=== PATIENT | female | born 2000 | race Caucasian/White ===

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

== ENCOUNTER → 2023-09-21 | Outpatient (CLI) | payer BC ==
[2023-09-21 15:27] LABS: CHOLESTEROL RISK RATIO 2.59 (<5); HDL CHOLESTEROL 63.1 MG/DL (>40); LDL CHOLESTEROL 88.5 MG/DL (<100); NON-HDL-C 100.9 MG/DL
== END ==
LOC: M LABDRWAD 08:42
PROVIDERS: ATTEND Family Medicine
DX: Z13.220 Encounter for screening for lipoid disorders (principal)